=== PATIENT | male | born 1950 | race American Indian/Alaskan Native ===

== ENCOUNTER 2019-05-15 14:47 | Outpatient (CLI) | payer BC ==
--- NOTE | 2019-05-15 15:35 | XRay Report ---
LUMBOSACRAL SPINE, 3 VIEWS INDICATION: LOW BACK PAIN. COMPARISON: None. IMPRESSION: 3 mm anterolisthesis of L4 with respect to L5 is identified on the lateral view. Mild d egenerative disc narrowing is noted at all levels. Severe disc space narrowing and circumferential sp urring is identified at L5-S1. No evidence for compression deformity, displaced fracture or bone les ion. The sacrum and SI joints are grossly normal. Signer Name: Garry Lilly Jr, MD Signed: 05/15/2019 3:30 PM Workstation Name: [id number]
== END 2019-05-15 14:48 | disposition home or self-care (01) ==
LOC: XRAY 14:47 → SPVIMAG 14:47
PROVIDERS: ATTEND Urology
DX: M48.07 Spinal stenosis, lumbosacral region (principal); M43.16 Spondylolisthesis, lumbar region
CPT/HCPCS: 72100